=== PATIENT | female | born 1965 | race Caucasian/White ===

== ENCOUNTER 2016-03-24 09:59 | Emergency (ER) | payer MEDICAID ==
[~2016-03-24] VITALS: Ht 157.5 cm; Wt 76.0 kg
[~2016-03-24 09:59] MED LIST: BEN25 PO; FAMO-18 PO
[2016-03-24 10:06] VITALS: Ht 157.5 cm; Wt 76.0 kg
[2016-03-24] MEDS ORDERED: KETOROLAC 60 MG INJ IM STA (10:24)
[2016-03-24] MEDS ORDERED: ULT50 PO (10:38)
[2016-03-24] MEDS ORDERED: IBUP-1542 PO (10:38)
[2016-03-24] MEDS ORDERED: CYCL-319 PO (10:38)
--- NOTE | 2016-03-24 10:43 | ERD ---
ER Documentation Chief Complaint Date/Time DATE: 03/24/16 TIME: 10:42 Chief Complaint lower back pain radiating to right leg x 2 weeks HPI This 50-year-old female presents with low back pain rating to her right buttock for last 2 weeks. She denies any inciting events, history of trauma, fevers, urinary complaints, bowel or bladder incontinence, weakness. She denies any previous history of back problems. ROS All systems reviewed and are negative except as per history of present illness. Medications Home Meds Active Scripts Cyclobenzaprine Hcl* (Cyclobenzaprine Hcl*) 10 Mg Tablet, 10 MG PO TID, #15 TAB Prov:STEPHAN OBRIEN MD 03/24/16 Ibuprofen* (Motrin*) 600 Mg Tab, 600 MG PO Q6, #20 TAB Prov:STEPHAN OBRIEN MD 03/24/16 Tramadol HCl (Tramadol HCl) 50 Mg Tablet, 50 MG PO Q4 Y for PAIN, #20 TAB Prov:STEPHAN OBRIEN MD 03/24/16 Famotidine* (Pepcid*) 20 Mg Tablet, 20 MG PO BID for 4 Days, TAB Prov:EMANUEL GOODWIN DO 01/10/16 Diphenhydramine Hcl* (Benadryl*) 25 Mg Cap, 25 MG PO Q6 Y for ITCHING/RASH, #30 TAB Prov:EMANUEL GOODWIN DO 01/10/16 Allergies Allergies: Coded Allergies: No Known Drug Allergies (Verified Allergy, Unknown, 03/24/16) PMhx/Soc History of Surgery: No Anesthesia Reaction: No Hx Neurological Disorder: No Hx Respiratory Disorders: No Hx Cardiac Disorders: No Hx Psychiatric Problems: No Hx Miscellaneous Medical Probl: No Hx Alcohol Use: No Hx Substance Use: No Hx Tobacco Use: No Smoking Status: Never smoker Physical Exam Vitals Vital Signs Date Time Temp Pulse Resp B/P Pulse Ox O2 Delivery O2 Flow Rate FiO2 03/24/16 10:06 97.9 62 18 116/68 98 Physical Exam Const: [] Alert, [id number]. Head: Atraumatic Eyes: Normal Conjunctiva ENT: Normal External Ears, Nose and Mouth. Neck: Full range of motion..~ No meningismus. Resp: Clear to auscultation bilaterally Cardio: Regular rate and rhythm, no murmurs Abd: Soft, non tender, non distended. Normal bowel sounds Skin: No petechiae or rashes Back: No midline or flank tenderness. There is some tenderness in the right L4-L5 paraspinous muscles. Patient is no appreciable restricted range of motion or weakness. Patient has positive straight leg raise on the right. Ext: No cyanosis, or edema Neur: Awake and alert. Normal gait. No appreciable focal neurologic deficits. Psych: Normal Mood and Affect Results 24 hrs Current Medications Medications (Trade) Dose Ordered Sig/Tammy Route PRN Reason Start Time Stop Time Status Last Admin Dose Admin Ketorolac Tromethamine (Toradol) 60 mg ONCE STAT IM 03/24/16 10:24 03/24/16 10:25 DC 03/24/16 10:28 Procedures/MDM This patient presents with nontraumatic low back pain rated the right leg consistent with sciatica. Radiologic studies were deferred given absence of trauma or neurologic deficit. She was given Toradol 60 mg IM will be discharged home the course of tramadol, Flexeril and ibuprofen and instructions on back exercises. She was advised to follow-up with primary doctor this week or return to the ER for new or worsening symptoms. There is no signs or symptoms to suggest epidural abscess, neurologic deficits, UTI, additional causes of low back pain. Departure Diagnosis: Primary Impression: Back pain Back pain location: low back pain Chronicity: acute Back pain laterality: left Sciatica presence: with sciatica Sciatica laterality: sciatica of left side Qualified Code: M54.42 - Acute left-sided low back pain with left-sided sciatica Condition: Stable Patient Instructions: Back Exercises, Lumbar, Back Pain W/ Sciatica [facility] Usted se lara hecho un examen mdico de control que le indica que no est en bao condicin que requiera tratamiento urgente en el Departamento de Emergencia. Un estudio ms profundo y el tratamiento de lawson condicin pueden esperar sin ningn riesgo hasta que usted sea atendida/o en el consultorio de lawson mdico o bao cl judy. Es responsabilidad suya arreglar bao linda para el seguimiento del alejandro. MANEJO DE CONDICIONES NO URGENTES EN EL FUTURO 1) Si usted tiene un mdico de atencin primaria: Usted debera llamar a lawson mdico de atencin primaria antes de venir al departamento de emergencia. Despus de las horas de consultorio, lawson doctor o lawson asociado/a est disponible por telfono. El mdico o enfermero de fred en el servicio telefnico puede asesorarle por rojelio medio para atender el problema, o alejandro contrario se puede programar bao linda. 2) Si usted no tiene un mdico de atencin primaria: Llame al mdico o clnica de referencia que aparece abajo irma las horas de consultorio para hacer bao linda para que le vean. CLINICAS: [facility] [phone] [phone] [facility] [phone] [facility] [phone] [place] [id number] [phone] [facility] [phone] MD Mar 24, 2016 10:43
== END 2016-03-24 10:47 | disposition home or self-care (01) ==
LOC: FTE 09:59
DX: M54.42 Lumbago with sciatica, left side (principal)
CPT/HCPCS: 96372; J1885; Z7502

== ENCOUNTER 2017-07-17 12:02 | Emergency (ER) | END 2017-07-17 13:46 | disposition home or self-care (01) ==